=== PATIENT | male | born 1970 | race Caucasian/White ===

== ENCOUNTER 2018-06-19 17:13 | Observation (INO) ==
[2018-06-19] MEDS ORDERED: Naloxone 0.4 MG/ML INJ IVP PRN (19:37)
[2018-06-19] MEDS ORDERED: Melatonin 3 MG TABLET PO PRN (19:37)
[2018-06-19] MEDS ORDERED: *HR* Promethazine 25 MG/ML VIAL IVP PRN (19:37)
[2018-06-19] MEDS ORDERED: OXYCODONE Oral CONC 10 MG/0.5 ML ORAL.SYG SL PRN ×2 (19:37)
[2018-06-19] MEDS ORDERED: Ondansetron 4 MG/2 ML VIAL IVP PRN (19:37)
--- NOTE | 2018-06-19 19:43 | Urology History & Physical ---
Date of Encounter: 06/19/18 Time of Encounter: 19:41 Assessment and Plan (1) Ureteral calculi Current Visit: Yes Status: Acute We will plan on ureteral stent placement tomorrow. In situ stone extraction may be difficult based on the size and location of the stone (2) Acute renal insufficiency Current Visit: Yes Status: Acute Renal insufficiency is concerning. Creatinine at 2.5. Vital signs otherwise stable. We will recheck BMP in the morning. Will watch for worsening renal function because the patient did receive Toradol. IV fluids this evening. Stent placement planned tomorrow. Avoid all nephrotoxins History of Present Illness Chief complaint: Flank pain HPI: Mr. Reyes is a 48 year old male with a history of urolithiasis. [facility] transfer this evening because of a 6/7 mm proximal ureteral stone. He has been having pain for 1 week. No fever. Baseline creatinine 1.3. Creatinine at [facility] 2.5. Toradol had been given prior to lab being drawn. Past Med Surg Social Fam HX - Past Medical History Medical history: cancer, hypertension, kidney stones Additional medical history: skin cancer head. Psychiatric history: anxiety, depression - Past Surgical History Surgical History: orthopedic, other, other Additional surgical history: shoulder, knee scope x2, sinus sx., herniated disc neck. - Social History Smoking Status: Never smoker Smokeless Tobacco Status: No Alcohol use: occasionally Drug use: none - Family History Father Hx Family Cardiac Disorders: Yes Mother Hx Family Cancer: Yes (colon) Medications and Allergies Aspirin 81 mg PO DAILY 07/27/17 [History] Cyclobenzaprine [Flexeril] 5 - 10 mg PO HS PRN 07/27/17 [History] Duloxetine HCl [Cymbalta] 60 mg PO DAILY 07/27/17 [History] Fexofenadine HCl 180 mg PO DAILY 07/27/17 [History] Glucosamn/Condroitn/C/Mn/[place] [[facility] Glucosamine Chondroitin Tb] 1 tab PO DAILY 07/27/17 [History] Lisinopril/Hydrochlorothiazide [Zestoretic 20-25 mg Tablet] 1 tab PO DAILY 07/27 [History] Pregabalin [Lyrica] 25 mg PO TID 07/27/17 [History] OxyCODONE/APAP 5/325 [Percocet 5/325 MG] 1 each PO Q4HR PRN #15 tablet 07/28/17 [Rx] Fexofenadine/Pseudoephedrine [Leydi-D 12 Hour Tablet] 1 each PO DAILY [History] Nasacort 55 mcg PO DAILY 12/28/17 [History] 3 Allergy/AdvReac Type Severity Reaction Status Date / Time No Known Allergies Allergy Verified 07/27/17 08:50 Review of Systems - Constitutional no chills, no fever(s) - EENT Nose, mouth and throat: no dizziness - Cardiovascular no chest pain - Respiratory no cough - Gastrointestinal abdominal pain, nausea - Genitourinary flank pain - Musculoskeletal back pain - Integumentary no erythema - Neurological no confusion - Psychiatric no anxiety - Hematologic/Lymphatic no easy bleeding Exam Initial Vital Signs Temp Pulse Resp BP Pulse Ox 98.6 F 83 16 123/76 93 06/19/18 18:16 06/19/18 18:16 06/19/18 18:16 06/19/18 18:16 06/19/18 18:16 - General physical appearance Present: no distress - Eyes Present: PERRL, conjunctiva is clear - ENT Present: normal nares, no hearing loss - Neck Present: no masses, no lymphadenopathy - Respiratory Present: normal respiratory effort - Cardiovascular Cardiovascular exam IM: RRR - Abdomen Abdomen: Present: soft. Absent: suprapubic tenderness - Integumentary Present: no rash, no growths, no abnormal pigmentation - Neurologic Present: normal coordination. Absent: disoriented, confused Urology Results - Labs All other labs normal.
[2018-06-19] MEDS: *HR* HYDROcodone/Acet 5/325 mg TABLET PO PRN (20:37)
[2018-06-19] MEDS: 0.9 % Sodium Chloride 1,000 ML IVC SCH (20:38)
[2018-06-20] MEDS: *HR* HYDROcodone/Acet 5/325 mg TABLET PO PRN ×3 (04:22→18:50)
[2018-06-20] MEDS: 0.9 % Sodium Chloride 1,000 ML IVC SCH ×4 (04:23→22:27)
[2018-06-20 05:42] LABS: Calcium 9.1 mg/dL (8.6-10.3)
[2018-06-20] MEDS ORDERED: cefTRIAXone 1,000 MG in Water for inj. (sterile) 20 ML 10 ML IVP SCH ×2 (09:00→14:00)
--- NOTE | 2018-06-20 10:23 | Anesthesia Evaluation PreOp ---
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, ANXIETY) Other Medical History: Renal (ROXIE, ?CKD) Anesthesia History: No Prior Anesthetic Complications, Past Anesthesia Alcohol Use: occasionally Drug use: none Medications and Allergies Aspirin 81 mg PO DAILY 07/27/17 [History] Cyclobenzaprine [Flexeril] 5 - 10 mg PO HS PRN 07/27/17 [History] Fexofenadine HCl 180 mg PO DAILY 07/27/17 [History] Glucosamn/Condroitn/C/Mn/[place] [[facility] Glucosamine Chondroitin Tb] 1 tab PO DAILY 07/27/17 [History] Lisinopril/Hydrochlorothiazide [Zestoretic 20-25 mg Tablet] 1 tab PO DAILY 07/27 [History] Pregabalin [Lyrica] 25 mg PO TID 07/27/17 [History] Mometasone Furoate 17 gm NS DAILY 12/28/17 [History] Atorvastatin Calcium [Lipitor] 20 mg PO QPM 06/20/18 [History] DULoxetine [Cymbalta] 30 mg PO DAILY 06/20/18 [History] 3 Allergy/AdvReac Type Severity Reaction Status Date / Time No Known Allergies Allergy Verified 07/27/17 08:50 - Meds/Allergy Pre-op Review Medications Reviewed: Yes Allergies Reviewed: Yes Beta Blockers on Current Med List: No Anesthesia Results - Labs 06/20/18 05:06 Calcium 9.1 mg/dL (8.6-10.3) 06/20/18 05:06 Anesthesia Exam Vital Signs/O2 Sat/Glucose, Most Recent Temp Pulse Resp BP Pulse Ox 98.6 F 92 15 123/80 93 06/20/18 10:18 06/20/18 10:18 06/20/18 10:18 06/20/18 10:18 06/20/18 10:18 Blood Glucose* 110 Height: 1.78 m Weight: 117 kg - BMI 37 NPO (# of Hours): 8 - HEENT Mallampati: IV (LIMITED NECK EXTENSION) Teeth: Normal Oral Opening: Greater than 3 - Cardiac Rhythm: Regular - Pulmonary Breath Sounds: bilateral Clear Respiratory Effort: Symmetrical - Additional Findings Active Medications Hydrocodone Bitart/Acetaminophen ([place] 5-325 Mg) 1 tab PO Q4HR PRN PRN Reason: mild to moderate pain Stop: 12/19/18 20:01 Last Admin: 06/20/18 04:22 Dose: 1 tab Sodium Chloride (0.9 % Sodium Chloride) 1,000 mls @ 125 mls/hr IVC .Q8H BIPIN Stop: 12/19/18 19:46 Last Admin: 06/20/18 04:23 Dose: 125 mls/hr Ceftriaxone Sodium 1,000 mg/ (Sterile Water) 10 mls @ 600 mls/hr IVP DAILY BIPIN Stop: 12/20/18 09:01 Last Infusion: 06/20/18 10:04 Dose: Infused Melatonin (Melatonin) 3 mg PO HS PRN PRN Reason: Insomnia Stop: 12/19/18 19:38 Last Admin: 06/19/18 20:37 Dose: 3 mg Ondansetron HCl (Zofran) 4 mg IVP Q6HR PRN PRN Reason: Nausea And Vomiting Stop: 12/19/18 19:38 Last Admin: 06/20/18 09:55 Dose: 4 mg Oxycodone HCl (Oxycodone Oral Conc) 5 mg SL Q4H PRN; Protocol PRN Reason: mild to moderate pain Stop: 12/19/18 19:38 Last Admin: 06/19/18 23:13 Dose: 5 mg Oxycodone HCl (Oxycodone Oral Conc) 10 mg SL Q4H PRN; Protocol PRN Reason: Severe Pain Stop: 12/19/18 19:38 Promethazine HCl (Phenergan) 25 mg IVP Q8H PRN PRN Reason: Nausea after zofran Stop: 12/19/18 19:38 Zolpidem Tartrate (Ambien) 5 mg PO HS PRN; Protocol PRN Reason: Insomnia after melatonin Stop: 12/19/18 19:38 Anesthesia Assess/Plan ASA Score: 3 Anesthetic Plan: General Monitoring Plan: Standard Monitors Recovery Plan: PACU
[2018-06-20] MEDS ORDERED: Acetaminophen IV 1,000 MG/100 ML INFUS..BTL ONE (11:12)
[2018-06-20] MEDS ORDERED: *HR* Propofol 200 MG/20 ML VIAL IVP ONE (11:15)
[2018-06-20] MEDS ORDERED: *HR* FentaNYL (PF) 100 MCG/2 ML VIAL ONE (11:15)
[2018-06-20] MEDS ORDERED: *HR* Midazolam HCl 2 MG/2 ML VIAL ONE (11:15)
[2018-06-20] MEDS ORDERED: Dexamethasone 4 MG/ML VIAL ONE (11:17)
[2018-06-20] MEDS ORDERED: Ondansetron 4 MG/2 ML VIAL ONE (11:17)
[2018-06-20] MEDS ORDERED: Lidocaine -MPF 2% 2 ML VIAL ONE (11:17)
[2018-06-20] MEDS ORDERED: Isovue-300 50 ML VIAL IVP ONE (11:31)
[2018-06-20] MEDS ORDERED: *HR* HYDROmorphone (PF) 1 MG/ML SYRINGE IVP PRN (11:49)
[2018-06-20] MEDS ORDERED: *HR* OxyCODONE Immed Rel 5 MG TABLET PO PRN (11:49)
[2018-06-20] MEDS ORDERED: *HR* Promethazine 25 MG/ML VIAL IVP PRN ×2 (11:49→12:52)
--- NOTE | 2018-06-20 12:07 | Operative Note ---
Date of procedure: 06/20/18 Pre-op diagnosis: right ureteral stone Post-op diagnosis: same Procedure: Cystoscopy, right retrograde pyelogram, right 4.8 x 28 cm ureteral stent placement Anesthesia: GETA Surgeon: Ba Morris Was there an certified medical technician assistant present: No Estimated blood loss (cc): 0 Specimen: none Condition: stable Disposition: PACU Procedure in Detail: Patient was prepped and draped in normal sterile fashion. Timeout procedure performed. I then inserted the semirigid ureteroscope into the urethra and advanced into the patient's bladder. I then placed a Glidewire into the patient 's right ureter. Immediate return of hydronephrotic fluid was noted. I then placed an open-ended ureteral catheter into the right ureter. Retrograde pyelogram was then performed which did not show any obvious filling defects. Limitation was at the proximal ureter secondary to bed positioning. I then placed this Glidewire back in the patient's right kidney and placed a 4.8 x 28 cm stent with good curl seen in the right kidney and in the bladder. The bladder was drained and procedure was ended.
[2018-06-20] MEDS ORDERED: Ondansetron 4 MG/2 ML VIAL IVP PRN (12:52)
[2018-06-20] MEDS ORDERED: Naloxone 0.4 MG/ML INJ IVP PRN (12:52)
[2018-06-20] MEDS ORDERED: Melatonin 3 MG TABLET PO PRN (12:52)
[2018-06-20] MEDS ORDERED: OXYCODONE Oral CONC 10 MG/0.5 ML ORAL.SYG SL PRN ×2 (12:52)
[2018-06-20] MEDS: Pregabalin 25 MG CAPSULE PO SCH ×2 (14:17→20:47)
[2018-06-20] MEDS ORDERED: *HR* Succinylcholine 200 MG/10 ML VIAL IVP ONE (14:49)
--- NOTE | 2018-06-20 17:42 | Anesthesia Evaluation Post Op ---
Date of Encounter: 06/20/18 Time of Encounter: 12:31 - Discharge PostOp Status: Transfer Patient to floor (Patient's vital signs have been reviewed. Patient is stable postoperatively and has adequately recovered from anesthesia. Patient is determined to have stable airway patency and respiratory function including respiratory rate and oxygen saturation. Patient has a stable heart rate, blood pressure and adequate hydration. Patients mental status is acceptable. Patients temperature is appropriate. Pain and nausea are adequately controlled.)
[2018-06-21] MEDS: *HR* HYDROcodone/Acet 5/325 mg TABLET PO PRN ×2 (00:45→08:16)
[2018-06-21 01:58] LABS: Calcium 9.6 mg/dL (8.6-10.3); Potassium 4.4 mEq/L (3.5-5.1)
[2018-06-21 06:49] VITALS: BP 109/73
--- NOTE | 2018-06-21 08:25 | Discharge Summary ---
<María Elena Parekh N - Last Filed: 06/21/18 08:22> Date of Encounter: 06/21/18 Time of Encounter: 08:26 - Discharge Diagnosis (1) Acute renal insufficiency Priority: Secondary Status: Acute (2) Ureteral calculi Priority: Primary Status: Acute - Hospital Course Hospital course: Mr. Reyes is a 48 year old male who presents as a transfer patient from [facility] for right proximal 6-7mm ureteral stone on 06/19/18. On 06/20/18 , the patient was taken to the operating room where he underwent cystoscopy, right retrograde pyelogram, right 4.8 x 28 cm ureteral stent placement. There were no surgical complications, and the patient tolerated the procedure well. His postoperative course was relatively unremarkable. On postoperative day 1, renal function had significantly improved from a creatinine of 2.5 on admission to 1.8. Postoperative expectations, restrictions, activity and follow-up were discussed with patient. Patient verbalized understanding, and he is aware that a second procedure is required for complete stone extraction. Patient agrees and will follow up as scheduled. Time spent discussing smoking cessation with patient: 3 to 10 minutes - Time Spent with Patient Total time spent providing and/or coordinating discharge services: Less than 30 minutes Procedures and tests throughout hospitalization: Cystoscopy, right retrograde pyelogram, right 4.8 x 28 cm ureteral stent placement Labs on day of discharge: Labs from last 24 hours 06/21/18 00:58 Sodium 135 L Potassium 4.4 Chloride 104 Carbon Dioxide 22 L BUN 30 H Creatinine 1.80 H Est GFR ( Amer) 49 L Est GFR (Non-Af Amer) 41 L BUN/Creatinine Ratio 17 Glucose 180 H Calculated Osmolality 291 Calcium 9.6 - Impressions ITS Impressions Fluoroscopy 06/20/18 00:00 IMPRESSION: Documentation of intraprocedural fluoroscopic usage as above. Please refer to the procedure report for additional information. D/ / 06/20/2018 12:34:28 Santy Adams MD / rasheeda Interpreting Provider: Santy Adams MD X-Ray 06/20/18 00:00 IMPRESSION: Documentation of intraprocedural fluoroscopic usage as above. Please refer to the procedure report for additional information. D/ / 06/20/2018 12:34:28 Santy Adams MD / rasheeda Interpreting Provider: Santy Adams MD X-Ray 06/20/18 08:03 IMPRESSION: Probable pelvic phleboliths projecting over the pelvis, otherwise unremarkable. Consider noncontrast CT scan if warranted. D/ / Gray Pinto MD / Gray Pinto MD Interpreting Provider: Gray Pinto MD - Discharge Medications Prescriptions: HYDROcodone/Acet 5/325 mg [[place] 5-325 mg] 1 tab PO Q6H PRN 3 Days #12 tab PRN Reason: Moderate Pain Home Medications: Aspirin 81 mg PO DAILY 07/27/17 [History] Cyclobenzaprine [Flexeril] 5 - 10 mg PO HS PRN 07/27/17 [History] Fexofenadine HCl 180 mg PO DAILY 07/27/17 [History] Glucosamn/Condroitn/C/Mn/[place] [[facility]vs Glucosamine Chondroitin Tb] 1 tab PO DAILY 07/27/17 [History] Lisinopril/Hydrochlorothiazide [Zestoretic 20-25 mg Tablet] 1 tab PO DAILY 07/27 [History] Pregabalin [Lyrica] 25 mg PO TID 07/27/17 [History] Mometasone Furoate 17 gm NS DAILY 12/28/17 [History] Atorvastatin Calcium [Lipitor] 20 mg PO QPM 06/20/18 [History] DULoxetine [Cymbalta] 30 mg PO DAILY 06/20/18 [History] HYDROcodone/Acet 5/325 mg [[place] 5-325 mg] 1 tab PO Q6H PRN 3 Days #12 tab 06/21 [Rx] Allergies/Adverse Reactions: 3 Allergy/AdvReac Type Severity Reaction Status Date / Time No Known Allergies Allergy Verified 07/27/17 08:50 Date of admission: 10/14/18 18:07 Primary care physician: Sarah Black CNP Discharging clinician: María Elena Parekh Anticipated date of discharge: 06/21/18 Exam Initial Vital Signs Temp Pulse Resp BP Pulse Ox 98.6 F 83 16 123/76 93 06/19/18 18:16 06/19/18 18:16 06/19/18 18:16 06/19/18 18:16 06/19/18 18:16 - General physical appearance Present: well developed, no distress, no pain - Eyes Present: PERRL, normal ocular movement - ENT Present: normal nares, no hearing loss, no congestion - Neck Present: no masses, trachea midline - Respiratory Present: normal respiratory effort - Cardiovascular Cardiovascular exam IM: RRR - Abdomen Abdomen: Present: soft, non tender - Integumentary Present: no rash, no abnormal pigmentation - Neurologic Present: normal coordination - Musculoskeletal Present: other (normal posture ) - Patient Status Disposition: Home, Self-Care Condition: Good Overall status at discharge: patient is progressing back to baseline - Discharge Instructions Follow Up With: Lopez Flores MD [Partnered Physician] - (Office will call to schedule stone extraction. Thank you) Additional Instructions: Call if fever greater than 101 degrees. Okay to shower. Okay to drive as long as you are no longer taking narcotic pain medicine. May expect blood in the urine or irritating voiding symptoms. May use Azo [id number]. Avoid nephrotoxins such as NSAIDs: Motrin, Advil, Aleve. Okay to return to normal activity as tolerated. [facility] will call to schedule stone extraction. - Diet and Activity Activity: increase activity as tolerated Diet: advance to your usual diet <Lopez Flores - Last Filed: 06/21/18 12:23> Date of Encounter: 06/21/18 - Discharge Diagnosis (1) Ureteral calculi Status: Acute (2) Acute renal insufficiency Status: Acute - Hospital Course Hospital course: agree with PA A/P - will plan stone extraction in near future - Time Spent with Patient Total time spent providing and/or coordinating discharge services: Labs on day of discharge: Labs from last 24 hours 06/21/18 00:58 Sodium 135 L Potassium 4.4 Chloride 104 Carbon Dioxide 22 L BUN 30 H Creatinine 1.80 H Est GFR ( Amer) 49 L Est GFR (Non-Af Amer) 41 L BUN/Creatinine Ratio 17 Glucose 180 H Calculated Osmolality 291 Calcium 9.6 - Impressions ITS Impressions Fluoroscopy 06/20/18 00:00 IMPRESSION: Documentation of intraprocedural fluoroscopic usage as above. Please refer to the procedure report for additional information. D/ / 06/20/2018 12:34:28 Santy Adams MD / rasheeda Interpreting Provider: Santy Adams MD X-Ray 06/20/18 00:00 IMPRESSION: Documentation of intraprocedural fluoroscopic usage as above. Please refer to the procedure report for additional information. D/ / 06/20/2018 12:34:28 Santy Adams MD / rasheeda Interpreting Provider: Santy Adams MD X-Ray 06/20/18 08:03 IMPRESSION: Probable pelvic phleboliths projecting over the pelvis, otherwise unremarkable. Consider noncontrast CT scan if warranted. D/ / Gray Pinto MD / Gray Pinto MD Interpreting Provider: Gray Pinto MD Date of admission: 06/19/18 18:07 Primary care physician: Sarah Black CNP Exam Initial Vital Signs Temp Pulse Resp BP Pulse Ox 98.6 F 83 16 123/76 93 06/19/18 18:16 06/19/18 18:16 06/19/18 18:16 06/19/18 18:16 06/19/18 18:16
[2018-06-21] MEDS ORDERED: Aspirin 81 MG TAB.CHEW PO SCH (09:00)
[2018-06-21] MEDS ORDERED: Loratadine 10 MG TABLET PO SCH (09:00)
[2018-06-21] MEDS ORDERED: cefTRIAXone 1,000 MG in Water for inj. (sterile) 20 ML 10 ML IVP SCH (09:00)
[2018-06-21] MEDS: Pregabalin 25 MG CAPSULE PO SCH (09:41)
--- NOTE | 2018-06-21 14:06 | Urology - Consult Note ---
Date of Encounter: 06/21/18 Time of Encounter: 14:04 Urology CN:HPI Consult date: 06/21/18 Reason for consult Urology: Other Requesting physician: Chrissy Francois Past Med Surg Social Fam HX - Past Medical History Medical history: cancer, hypertension, kidney stones Additional medical history: skin cancer head. Psychiatric history: anxiety, depression - Past Surgical History Surgical History: orthopedic, other, other Additional surgical history: shoulder, knee scope x2, sinus sx., herniated disc neck. - Social History Smoking Status: Never smoker Smokeless Tobacco Status: No Alcohol use: occasionally Drug use: none - Family History Father Hx Family Cardiac Disorders: Yes Mother Hx Family Cancer: Yes (colon) Medications and Allergies Aspirin 81 mg PO DAILY 07/27/17 [History] Cyclobenzaprine [Flexeril] 5 - 10 mg PO HS PRN 07/27/17 [History] Fexofenadine HCl 180 mg PO DAILY 07/27/17 [History] Glucosamn/Condroitn/C/Mn/[place] [[facility]vs Glucosamine Chondroitin Tb] 1 tab PO DAILY 07/27/17 [History] Lisinopril/Hydrochlorothiazide [Zestoretic 20-25 mg Tablet] 1 tab PO DAILY 07/27 [History] Pregabalin [Lyrica] 25 mg PO TID 07/27/17 [History] Mometasone Furoate 17 gm NS DAILY 12/28/17 [History] Atorvastatin Calcium [Lipitor] 20 mg PO QPM 06/20/18 [History] DULoxetine [Cymbalta] 30 mg PO DAILY 06/20/18 [History] HYDROcodone/Acet 5/325 mg [[place] 5-325 mg] 1 tab PO Q6H PRN 3 Days #12 tab 06/21 [Rx] 3 Allergy/AdvReac Type Severity Reaction Status Date / Time No Known Allergies Allergy Verified 07/27/17 08:50 Exam Initial Vital Signs Temp Pulse Resp BP Pulse Ox 98.6 F 83 16 123/76 93 06/19/18 18:16 06/19/18 18:16 06/19/18 18:16 06/19/18 18:16 06/19/18 18:16 Urology Results - Labs 06/21/18 00:58 Abnormal lab results Sodium 135 mEq/L (136-145) L 06/21/18 00:58 Carbon Dioxide 22 mEq/L (23-29) L 06/21/18 00:58 BUN 30 mg/dL (6-20) H 06/21/18 00:58 Creatinine 1.80 mg/dL (0.70-1.30) H 06/21/18 00:58 Est GFR ( Amer) 49 (> 60) L 06/21/18 00:58 Est GFR (Non-Af Amer) 41 (> 60) L 06/21/18 00:58 Glucose 180 mg/dL (70-105) H 06/21/18 00:58 POC Glucose 110 mg/dL (70-99) H 06/20/18 05:33 Diabetes panel 06/21/18 Range/Units 00:58 Sodium 135 L (136-145) mEq/L Potassium 4.4 (3.5-5.1) mEq/L Chloride 104 (98-107) mEq/L Carbon Dioxide 22 L (23-29) mEq/L BUN 30 H (6-20) mg/dL Creatinine 1.80 H (0.70-1.30) mg/dL Glucose 180 H (70-105) mg/dL Calcium 9.6 (8.6-10.3) mg/dL Calcium panel 06/21/18 Range/Units 00:58 Calcium 9.6 (8.6-10.3) mg/dL Pituitary panel 06/21/18 Range/Units 00:58 Sodium 135 L (136-145) mEq/L Potassium 4.4 (3.5-5.1) mEq/L Chloride 104 (98-107) mEq/L Carbon Dioxide 22 L (23-29) mEq/L BUN 30 H (6-20) mg/dL Creatinine 1.80 H (0.70-1.30) mg/dL Glucose 180 H (70-105) mg/dL Calcium 9.6 (8.6-10.3) mg/dL Adrenal panel 06/21/18 Range/Units 00:58 Sodium 135 L (136-145) mEq/L Potassium 4.4 (3.5-5.1) mEq/L Chloride 104 (98-107) mEq/L Carbon Dioxide 22 L (23-29) mEq/L BUN 30 H (6-20) mg/dL Creatinine 1.80 H (0.70-1.30) mg/dL Glucose 180 H (70-105) mg/dL Calcium 9.6 (8.6-10.3) mg/dL All other labs normal. Consult Discharge Plan - Plan Additional Instructions: Call if fever greater than 101 degrees. Okay to shower. Okay to drive as long as you are no longer taking narcotic pain medicine. May expect blood in the urine or irritating voiding symptoms. May use Azo [id number]. Avoid nephrotoxins such as NSAIDs: Motrin, Advil, Aleve. Okay to return to normal activity as tolerated. [facility] will call to schedule stone extraction. Referrals: Lopez Flores MD [Partnered Physician] - (Office will call to schedule stone extraction. Thank you) Prescriptions: HYDROcodone/Acet 5/325 mg [[place] 5-325 mg] 1 tab PO Q6H PRN 3 Days #12 tab PRN Reason: Moderate Pain
== END 2018-06-21 17:42 | disposition home or self-care (01) ==
LOC: 3ANU
PROVIDERS: ADMIT Urology; ATTEND Urology